=== PATIENT | female | born 1985 | race Caucasian/White ===

== ENCOUNTER 2022-12-29 20:32 | Emergency (ER) | payer SELFPAY ==
[~2022-12-29] VITALS: Ht 165.1 cm; Wt 68.0 kg
[2022-12-29 22:00] VITALS: BP 101/67
[2022-12-29] MEDS ORDERED: DIPHENHYDRAMINE 50MG/ML VIAL IV ONE (22:00)
[2022-12-29] MEDS ORDERED: SODIUM CHLORIDE 0.9% 1,000 ML IV ONE (22:00)
[2022-12-29] MEDS ORDERED: KETOROLAC 30MG/ML VIAL IV ONE (22:00)
[2022-12-29] MEDS ORDERED: METOCLOPRAMIDE HCL 10MG/2ML VIAL IV ONE (22:00)
[2022-12-30] MEDS ORDERED: ASPI1TAB8 PO (00:30)
[2022-12-30] MEDS ORDERED: METO-293 MT (00:30)
== END 2022-12-30 00:43 | disposition home or self-care (01) ==
LOC: ER 20:32
DX: G43.909 Migraine, unspecified, not intractable, without status migrainosus (principal)
CPT/HCPCS: 70450; 81025; 96361; 96374; 96375; 99285; J1200; J1885; J2765; J7030

== ENCOUNTER 2023-05-10 13:00 | Emergency (ER) | payer MEDICAID ==
[~2023-05-10] VITALS: Ht 165.1 cm; Wt 65.0 kg
[~2023-05-10 13:00] MED LIST: ASPI1TAB8 PO; METO-293 MT
[2023-05-10 13:07] VITALS: TEMP 98.1; O2SAT 98
[2023-05-10 14:18] LABS: BASOPHILS % 0.7 % (0.0-2.0); HEMATOCRIT. 39.3 % (36.0-48.0); HEMOGLOBIN. 13.4 g/dL (12.0-16.0); LYMPHOCYTES % 22.8 % (20.0-50.0); MEAN CORPUSCULAR HEMOGLOBIN 29.1 pg (28.0-32.0); MEAN CORPUSCULAR VOLUME 85.8 fL (81.0-99.0); MEAN PLATELET VOLUME 9.8 fl (7.4-10.4); MONOCYTES % 3.7 % (2.0-8.0); NEUTROPHILS % 70.8 % (40.0-76.0); PLATELET 234 x1000/uL (130-400); RED BLOOD CELL COUNT 4.59 mill/uL (4.2-5.4); RED CELL DISTRIBUTION WIDTH 12.4 % (11.6-14.6); WHITE BLOOD COUNT 10.1 x1000/uL (4.5-11.0)
[2023-05-10 14:20] LABS: CHLORIDE 108 mEq/L (98-107); INDEX HEMOLYSI 1 (1-3); INDEX ICTERIC 1 (1-4); INDEX LIPEMIC 1 (1-3); POTASSIUM 3.4 mEq/L (3.5-5.1); SODIUM 138 mEq/L (136-145)
[2023-05-10 14:29] LABS: ALANINE AMINOTRANSFERASE 24 IU/L (13-61); ALBUMIN 4.2 g/dL (3.4-5.0); ASPARTATE AMINOTRANSFERASE 19 IU/L (15-37); BILIRUBIN TOTAL 0.7 mg/dL (0.1-1.0); CALCIUM 9.1 mg/dL (8.5-10.1); CARBON DIOXIDE 21 mEq/L (21-32); CREATININE 0.7 mg/dL (0.6-1.3); GLUCOSE 95 mg/dL (70-105); PROTEIN TOTAL 8.2 g/dL (6.0-8.3); UREA NITROGEN BLOOD 9 mg/dL (7-21)
[2023-05-10 17:58] LABS: CLARITY URINE CLOUDY (CLEAR); COLOR URINE YELLOW (YELLOW); GLUCOSE URINE NEGATIVE (NEGATIVE); KETONES URINE 1+ (NEGATIVE); LEUKOCYTE ESTERASE URINE 2+ (NEGATIVE); NITRITE URINE NEGATIVE (NEGATIVE); OCCULT BLOOD URINE NEGATIVE (NEGATIVE); PH URINE 5.5 (4.5-8.0); PROTEIN URINE NEGATIVE (NEGATIVE); SPECIFIC GRAVITY URINE 1.019 (1.005-1.030); UROBILINOGEN URINE 0.2 E.U./dL (0.2-1.0)
[2023-05-10 18:16] LABS: BACTERIA URINE 3+; RBC URINE 0-2 /hpf (0-2); SQUAMOUS EPITHELIAL CELL URINE 2+ /lpf (RARE/1+)
[2023-05-10 18:30] VITALS: BP 152/86; PULSE 98; RESP 19
[2023-05-10] MEDS ORDERED: KETOROLAC 60MG/2ML VIAL IM ONE (18:30)
[2023-05-10] MEDS ORDERED: IBUP-2029 MT (19:46)
== END 2023-05-10 20:27 | disposition home or self-care (01) ==
LOC: ER 13:00
DX: N83.209 Unspecified ovarian cyst, unspecified side (principal)
CPT/HCPCS: 99285; 76830; 76856; 93976; 80053; 81003; 81025; 83690; 85025; 36415; 96372; J1885

== ENCOUNTER 2023-08-20 12:19 | Emergency (ER) | payer MEDICAID ==
[~2023-08-20] VITALS: Ht 165.1 cm; Wt 53.0 kg
[~2023-08-20 12:19] MED LIST changes: +IBUP-2029 MT
[2023-08-20 12:35] VITALS: O2SAT 99
[2023-08-20] MEDS ORDERED: DEXAMETHASONE 2MG TABLET PO ONE (13:45)
[2023-08-20] MEDS ORDERED: DIPHENHYDRAMINE 50MG CAPSULE PO ONE (13:45)
[2023-08-20] MEDS ORDERED: DEXAMETHASONE 6MG TABLET PO NR (14:00)
[2023-08-20] MEDS ORDERED: DEXAMETHASONE 4MG TABLET PO NR (14:00)
[2023-08-20 14:16] LABS: BASOPHILS % 1.1 % (0.0-2.0); EOSINOPHILS % 3.8 % (0.0-5.0); HEMATOCRIT. 38.4 % (36.0-48.0); HEMOGLOBIN. 13.1 g/dL (12.0-16.0); LYMPHOCYTES % 39.1 % (20.0-50.0); MEAN CORPUSCULAR HEMOGLOBIN 29.3 pg (28.0-32.0); MEAN CORPUSCULAR HGB CONC 34.2 g/dL (31.0-37.0); MEAN CORPUSCULAR VOLUME 85.6 fL (81.0-99.0); MEAN PLATELET VOLUME 9.4 fl (7.4-10.4); MONOCYTES % 4.9 % (2.0-8.0); NEUTROPHILS % 51.1 % (40.0-76.0); PLATELET 216 x1000/uL (130-400); RED BLOOD CELL COUNT 4.49 mill/uL (4.2-5.4); RED CELL DISTRIBUTION WIDTH 12.8 % (11.6-14.6); WHITE BLOOD COUNT 4.8 x1000/uL (4.5-11.0)
[2023-08-20 14:39] LABS: ALANINE AMINOTRANSFERASE 14 IU/L (10-49); ALBUMIN 4.6 g/dL (3.2-4.8); ASPARTATE AMINOTRANSFERASE 18 IU/L (<34); BILIRUBIN TOTAL 0.5 mg/dL (0.1-1.0); CALCIUM 9.9 mg/dL (8.7-10.4); CARBON DIOXIDE 25 mEq/L (21-32); CHLORIDE 106 mEq/L (98-107); CREATININE 0.7 mg/dL (0.6-1.0); GLUCOSE 92 mg/dL (70-105); POTASSIUM 4.2 mEq/L (3.5-5.1); PROTEIN TOTAL 7.9 g/dL (6.0-8.3); SODIUM 139 mEq/L (136-145); UREA NITROGEN BLOOD 10 mg/dL (9-23)
[2023-08-20 14:40] LABS: HCG SCREEN NEGATIVE
[2023-08-20] MEDS ORDERED: METOCLOPRAMIDE HCL 10MG/2ML VIAL IV ONE (15:15)
[2023-08-20] MEDS ORDERED: ACETAMINOPHEN 325MG TABLET PO ONE (15:15)
[2023-08-20] MEDS ORDERED: LACTATED RINGERS 1,000 ML IV SCH (15:45)
[2023-08-20 17:00] VITALS: TEMP 98.5
[2023-08-20 17:33] VITALS: BP 93/53; PULSE 69; RESP 17
== END 2023-08-20 17:36 | disposition home or self-care (01) ==
LOC: ER 12:19
DX: T78.40XA Allergy, unspecified, initial encounter (principal); L03.213 Periorbital cellulitis; X58.XXXA Exposure to other specified factors, initial encounter
CPT/HCPCS: 80053; 81025; 84703; 85025; 36415; 70470; 96374; 99285; J8540; Q0163; J2765; Z7610

== ENCOUNTER 2023-10-24 22:41 | Emergency (ER) | payer MEDICAID, OTHER ==
[~2023-10-24] VITALS: Ht 165.1 cm; Wt 67.6 kg
[2023-10-24 23:13] VITALS: BP 102/31; PULSE 82; RESP 18; TEMP 97.7; O2SAT 97
[2023-10-24 23:38] LABS: BASOPHILS % 0.7 % (0.0-2.0); EOSINOPHILS % 4.6 % (0.0-5.0); HEMOGLOBIN. 12.5 g/dL (12.0-16.0); LYMPHOCYTES % 36.5 % (20.0-50.0); MEAN CORPUSCULAR HEMOGLOBIN 29.2 pg (28.0-32.0); MEAN CORPUSCULAR HGB CONC 33.7 g/dL (31.0-37.0); MEAN CORPUSCULAR VOLUME 86.7 fL (81.0-99.0); MEAN PLATELET VOLUME 9.4 fl (7.4-10.4); MONOCYTES % 6.7 % (2.0-8.0); NEUTROPHILS % 51.5 % (40.0-76.0); PLATELET 237 x1000/uL (130-400); RED BLOOD CELL COUNT 4.27 mill/uL (4.2-5.4); RED CELL DISTRIBUTION WIDTH 12.4 % (11.6-14.6); WHITE BLOOD COUNT 7.2 x1000/uL (4.5-11.0)
[2023-10-24 23:48] LABS: PROTHROMBIN TIME 10.9 sec (9.6-11.0)
[2023-10-25 00:08] LABS: ALANINE AMINOTRANSFERASE 11 IU/L (10-49); ALBUMIN 4.3 g/dL (3.2-4.8); ASPARTATE AMINOTRANSFERASE 19 IU/L (<34); BILIRUBIN TOTAL 0.4 mg/dL (0.1-1.0); CALCIUM 8.7 mg/dL (8.7-10.4); CARBON DIOXIDE 23 mEq/L (21-32); CHLORIDE 108 mEq/L (98-107); CREATININE 0.8 mg/dL (0.6-1.0); GLUCOSE 96 mg/dL (70-105); PROTEIN TOTAL 6.6 g/dL (6.0-8.3); SODIUM 137 mEq/L (136-145); UREA NITROGEN BLOOD 9 mg/dL (9-23)
[2023-10-25 00:23] LABS: HCG SCREEN NEGATIVE
[2023-10-25 01:49] LABS: CLARITY URINE CLEAR (CLEAR); COLOR URINE YELLOW (YELLOW); GLUCOSE URINE NEGATIVE (NEGATIVE); KETONES URINE NEGATIVE (NEGATIVE); LEUKOCYTE ESTERASE URINE NEGATIVE (NEGATIVE); NITRITE URINE NEGATIVE (NEGATIVE); OCCULT BLOOD URINE NEGATIVE (NEGATIVE); PROTEIN URINE NEGATIVE (NEGATIVE); SPECIFIC GRAVITY URINE 1.012 (1.005-1.030); UROBILINOGEN URINE 0.2 E.U./dL (0.2-1.0)
[2023-10-25] MEDS: SODIUM CHLORIDE 0.9% 1,000 ML IV ONE (02:15)
[2023-10-25] MEDS: MORPHINE SULFATE 4 MG/ML INJ (FOR IV/IM USE) IV NR (02:21)
[2023-10-25] MEDS: ONDANSETRON HCL 4MG/2ML INJ IV NR (02:21)
[2023-10-25] MEDS: MORPHINE SULFATE 4 MG/ML INJ (FOR IV/IM USE) IV ONE (02:22)
[2023-10-25] MEDS: ONDANSETRON HCL 4MG/2ML INJ IV ONE (02:22)
[2023-10-25] MEDS ORDERED: TOPUD PO (02:48)
[2023-10-25] MEDS ORDERED: IBUP-2028 MT (02:48)
[2023-10-25] MEDS ORDERED: POLY119P2 MT (02:49)
[2023-10-25] MEDS: KETOROLAC 30MG/ML VIAL IV ONE (04:04)
== END 2023-10-25 04:40 | disposition home or self-care (01) ==
LOC: ER 22:41
DX: N84.0 Polyp of corpus uteri (principal)
CPT/HCPCS: 80053; 84703; 83690; 85025; 85610; 36415; 76830; 76856; 99285; 81003; 74176; 96361; 96374; 96375; J7030; J1885; J2405; J2270; Z7610; A4565

== ENCOUNTER 2024-05-13 19:03 | Emergency (ER) | payer OTHER ==
[~2024-05-13] VITALS: Ht 167.6 cm; Wt 60.0 kg
[~2024-05-13 19:03] MED LIST changes: +IBUP-2028 MT; +POLY119P2 MT; +TOPUD PO
[2024-05-13 19:11] VITALS: O2SAT 99
[2024-05-13] MEDS ORDERED: DIPHENHYDRAMINE 50MG/ML VIAL IV ONE (19:45)
[2024-05-13 20:08] LABS: BASOPHILS % 0.8 % (0.0-2.0); EOSINOPHILS % 2.2 % (0.0-5.0); HEMATOCRIT. 37.8 % (36.0-48.0); HEMOGLOBIN. 12.6 g/dL (12.0-16.0); LYMPHOCYTES % 40.2 % (20.0-50.0); MEAN CORPUSCULAR HEMOGLOBIN 29.2 pg (28.0-32.0); MEAN CORPUSCULAR HGB CONC 33.3 g/dL (31.0-37.0); MEAN CORPUSCULAR VOLUME 87.6 fL (81.0-99.0); MEAN PLATELET VOLUME 9.8 fl (7.4-10.4); MONOCYTES % 5.9 % (2.0-8.0); NEUTROPHILS % 50.9 % (40.0-76.0); PLATELET 210 x1000/uL (130-400); RED BLOOD CELL COUNT 4.31 mill/uL (4.2-5.4); RED CELL DISTRIBUTION WIDTH 12.3 % (11.6-14.6); WHITE BLOOD COUNT 6.8 x1000/uL (4.5-11.0)
[2024-05-13 20:12] LABS: CHLORIDE 109 mEq/L (98-107); POTASSIUM 3.6 mEq/L (3.5-5.1); SODIUM 139 mEq/L (136-145)
[2024-05-13 20:13] LABS: CARBON DIOXIDE 23 mEq/L (21-32)
[2024-05-13 20:14] LABS: CALCIUM 9.7 mg/dL (8.7-10.4)
[2024-05-13 20:18] LABS: CREATININE 0.8 mg/dL (0.6-1.0); GLUCOSE 99 mg/dL (70-105); PROTHROMBIN TIME 11.3 sec (9.6-11.0); UREA NITROGEN BLOOD 8 mg/dL (9-23)
[2024-05-13 20:29] LABS: HCG SCREEN NEGATIVE
[2024-05-13] MEDS ORDERED: IBUP-2030 MT (22:06)
[2024-05-13] MEDS: PROCHLORPERAZINE 10MG/2ML VIAL IV ONE (22:49)
[2024-05-13] MEDS: SODIUM CHLORIDE 0.9% 1,000 ML IV ONE (22:49)
[2024-05-13] MEDS: DIPHENHYDRAMINE 50MG/ML VIAL IV NR (22:49)
[2024-05-13 22:51] VITALS: BP 114/74; PULSE 66; RESP 18; TEMP 36.72516; O2SAT 99
== END 2024-05-13 22:53 | disposition home or self-care (01) ==
LOC: ER 19:03
DX: G43.909 Migraine, unspecified, not intractable, without status migrainosus (principal); R42 Dizziness and giddiness; Z79.82 Long term (current) use of aspirin; Z79.899 Other long term (current) drug therapy
CPT/HCPCS: 80048; 84703; 85025; 85610; 36415; 70450; 99284; J7030; Z7610; J0780

== ENCOUNTER 2024-07-05 12:51 | Emergency (ER) | payer OTHER ==
[~2024-07-05] VITALS: Ht 165.1 cm; Wt 72.0 kg
[~2024-07-05 12:51] MED LIST changes: +IBUP-2030 MT
[2024-07-05 13:08] VITALS: O2SAT 97
[2024-07-05 14:01] VITALS: TEMP 37.05852; O2SAT 97
[2024-07-05] MEDS: KETOROLAC 30MG/ML VIAL IM ONE (14:49)
[2024-07-05 14:50] VITALS: BP 94/68; PULSE 80; RESP 16
[2024-07-05] MEDS: HYDROCODONE/ACETAMINOPHEN 10/325MG TABLET PO ONE (14:50)
== END 2024-07-05 14:54 | disposition home or self-care (01) ==
LOC: ER 12:51
DX: S40.021A Contusion of right upper arm, initial encounter (principal); Z79.82 Long term (current) use of aspirin; Z79.899 Other long term (current) drug therapy; W06.XXXA Fall from bed, initial encounter; Y93.89 Activity, other specified; Y92.89 Other specified places as the place of occurrence of the external cause; Y99.8 Other external cause status
CPT/HCPCS: 73030; 73060; 73080; 96372; 99284; J1885; Z7610